=== PATIENT | male | born 1965 | race African-American/Black ===

== ENCOUNTER 2018-01-20 06:36 | Emergency (ER) | payer MEDICAID ==
[~2018-01-20] VITALS: Ht 170.2 cm; Wt 81.0 kg
[2018-01-20] MEDS ORDERED: PREDNISONE 20MG TABLET PO STA (07:22)
[2018-01-20] MEDS ORDERED: IPRATROPIUM BROMIDE (0.02%) 0.5MG/2.5ML NEB HHN STA (07:22)
[2018-01-20] MEDS ORDERED: ALBUTEROL (0.083%) 2.5MG/3ML NEB HHN STA ×2 (07:22→09:30)
[2018-01-20 09:45] VITALS: BP 135/73
== END 2018-01-20 10:15 | disposition home or self-care (01) ==
LOC: ER 06:36
DX: J45.901 Unspecified asthma with (acute) exacerbation (principal); F17.210 Nicotine dependence, cigarettes, uncomplicated; F12.10 Cannabis abuse, uncomplicated
CPT/HCPCS: 71045; 93005; 94640; 94644; 99285; J7512; J7611; Z7610

== ENCOUNTER 2018-06-09 03:26 | Emergency (ER) | payer MEDICAID ==
[~2018-06-09] VITALS: Ht 170.2 cm; Wt 66.0 kg
[2018-06-09 03:30] VITALS: BP 104/67
== END 2018-06-09 07:12 | disposition left against medical advice (07) ==
LOC: ER 03:26
DX: S61.412A Laceration without foreign body of left hand, initial encounter (principal); Z53.21 Procedure and treatment not carried out due to patient leaving prior to being seen by health care provider; X58.XXXA Exposure to other specified factors, initial encounter; Y93.89 Activity, other specified; Y92.89 Other specified places as the place of occurrence of the external cause; Y99.8 Other external cause status

== ENCOUNTER 2018-06-09 15:55 | Emergency (ER) | payer MEDICAID ==
[~2018-06-09] VITALS: Ht 167.6 cm; Wt 77.0 kg
[2018-06-09] MEDS ORDERED: BACITRACIN ZINC OINT UDPKT TOP ONE (17:15)
[2018-06-09 17:48] VITALS: BP 100/51
== END 2018-06-09 17:49 | disposition home or self-care (01) ==
LOC: ER 16:35
DX: S61.412A Laceration without foreign body of left hand, initial encounter (principal); F17.200 Nicotine dependence, unspecified, uncomplicated; W01.0XXA Fall on same level from slipping, tripping and stumbling without subsequent striking against object, initial encounter; Y93.89 Activity, other specified; Y92.89 Other specified places as the place of occurrence of the external cause; Y99.8 Other external cause status
CPT/HCPCS: 99283; X7700

== ENCOUNTER 2018-06-19 21:52 | Emergency (ER) | payer MEDICAID ==
[~2018-06-19] VITALS: Ht 170.2 cm; Wt 79.0 kg
[2018-06-20 02:48] VITALS: BP 118/73
== END 2018-06-20 02:46 | disposition home or self-care (01) ==
LOC: ER 21:52
DX: M25.561 Pain in right knee (principal); J45.909 Unspecified asthma, uncomplicated; F17.200 Nicotine dependence, unspecified, uncomplicated; F12.10 Cannabis abuse, uncomplicated; V29.88XA Motorcycle rider (driver) (passenger) injured in other specified transport accidents, initial encounter; Y93.89 Activity, other specified; Y92.89 Other specified places as the place of occurrence of the external cause; Y99.8 Other external cause status; Z96.652 Presence of left artificial knee joint
CPT/HCPCS: 73562; 73590; 99284

== ENCOUNTER 2023-12-13 09:30 | Emergency (ER) | payer MEDICAID, OTHER ==
[~2023-12-13] VITALS: Ht 170.2 cm; Wt 84.0 kg
[2023-12-13 09:42] VITALS: BP 112/68; PULSE 112; RESP 16; TEMP 98.2; O2SAT 97
[2023-12-13] MEDS ORDERED: KETOROLAC 15MG/ML VIAL IM ONE (10:15)
[2023-12-13] MEDS ORDERED: KETOROLAC 15MG/ML VIAL IM SCH (12:15)
[2023-12-13 12:38] LABS: BASOPHILS % 0.2 % (0.0-2.0); EOSINOPHILS % 0.4 % (0.0-5.0); HEMATOCRIT. 44.3 % (42.0-52.0); HEMOGLOBIN. 14.8 g/dL (14.0-18.0); LYMPHOCYTES % 7.5 % (20.0-50.0); MEAN CORPUSCULAR HEMOGLOBIN 29.7 pg (28.0-32.0); MEAN CORPUSCULAR HGB CONC 33.5 g/dL (31.0-37.0); MEAN CORPUSCULAR VOLUME 88.8 fL (80.0-94.0); MEAN PLATELET VOLUME 7.1 fl (7.4-10.4); NEUTROPHILS % 82.9 % (40.0-76.0); PLATELET 285 x1000/uL (130-400); RED BLOOD CELL COUNT 4.99 mill/uL (4.7-6.1); WHITE BLOOD COUNT 18.6 x1000/uL (4.5-11.0)
[2023-12-13 13:01] LABS: ALANINE AMINOTRANSFERASE 9 IU/L (10-49); ALBUMIN 4.4 g/dL (3.2-4.8); ASPARTATE AMINOTRANSFERASE 8 IU/L (<34); BILIRUBIN TOTAL 0.9 mg/dL (0.1-1.0); CALCIUM 9.1 mg/dL (8.7-10.4); CARBON DIOXIDE 26 mEq/L (21-32); CHLORIDE 101 mEq/L (98-107); GLUCOSE 128 mg/dL (70-105); POTASSIUM 4.1 mEq/L (3.5-5.1); PROTEIN TOTAL 8.1 g/dL (6.0-8.3); SODIUM 133 mEq/L (136-145); UREA NITROGEN BLOOD 12 mg/dL (9-23)
[2023-12-13 13:01] LABS: CLARITY URINE TURBID (CLEAR); COLOR URINE ORANGE (YELLOW); GLUCOSE URINE NEGATIVE (NEGATIVE); KETONES URINE NEGATIVE (NEGATIVE); LEUKOCYTE ESTERASE URINE 3+ (NEGATIVE); NITRITE URINE POSITIVE (NEGATIVE); OCCULT BLOOD URINE 3+ (NEGATIVE); PH URINE 5.5 (4.5-8.0); PROTEIN URINE 2+ (NEGATIVE); SPECIFIC GRAVITY URINE 1.037 (1.005-1.030)
[2023-12-13 13:08] LABS: PROTHROMBIN TIME 10.3 sec (9.6-11.0)
[2023-12-13 13:23] LABS: WBC URINE TNTC /hpf (0-2)
[2023-12-13 13:24] LABS: BACTERIA URINE 3+; RBC URINE 25-50 /hpf (0-2)
[2023-12-13 13:25] LABS: YEAST URINE NONE SEEN
[2023-12-13] MEDS ORDERED: IBUP-2029 MT (15:07)
[2023-12-13] MEDS ORDERED: CEFP200T13 MT (15:07)
== END 2023-12-13 15:35 | disposition home or self-care (01) ==
LOC: ER 09:30
DX: N39.0 Urinary tract infection, site not specified (principal); F12.10 Cannabis abuse, uncomplicated; J45.909 Unspecified asthma, uncomplicated; Z98.890 Other specified postprocedural states
CPT/HCPCS: 99285; 74176; 93976; 80053; 81003; 85025; 85610; 86850; 86900; 86901; 87086; 87186; 87077; 36415; 76870; 96372; J1885